=== PATIENT | female | born 1955 | race Caucasian/White ===

== ENCOUNTER 2021-09-06 02:16 | Emergency (ER) | payer BC, OTHER ==
[~2021-09-06] VITALS: Ht 152.4 cm; Wt 61.2 kg
--- NOTE | 2021-09-06 02:26 | NUR ---
PT AAOX4. BIBRA 89 C/O FEVER AND HEADACHE. +CHRONIC BACK PAIN. AT HOME, STATED TEMP WAS "103." PT STATED SHE TOOK 500MG TYLENOL PO. UPON TRAIGE, PT'S TEMP WAS 99. PLACED IN GOWN, ON CAMPAIGN WORKER, AND PULSE OX. LINE ESTABLISHED, BLOOD WORK COLLECTED, SENT TO LAB. ER AT BEDSIDE FOR EVAL.
[2021-09-06 02:55] LABS: BASOPHILS # (AUTO) 0.1 K/uL (0.0-0.2); BASOPHILS % (AUTO) 0.6 % (0.0-2.0); EOSINOPHILS % (AUTO) 0.7 % (0.0-6.0); HEMATOCRIT 38 % (33-45); HEMOGLOBIN 12.5 g/dL (11.5-14.8); MEAN CORPUSCULAR HGB CONC 33 g/dl (31.0-36.0); MEAN CORPUSCULAR VOLUME 88 fL (82-100); MONOCYTES % (AUTO) 6.7 % (2.0-12.0); NEUTROPHILS # (AUTO) 12.5 K/uL (1.8-8.9); PLATELET COUNT (AUTO) 238 K/uL (150-450); RED BLOOD CELL COUNT(AUTO) 4.37 MIL/uL (4.0-5.2); WHITE BLOOD COUNT (AUTO) 14.7 K/uL (4.3-11.0)
[2021-09-06] MEDS ORDERED: IV NS 0.9% 1,000 ML BAG IV ONE ×2 (03:00)
[2021-09-06 03:06] LABS: ALANINE AMINOTRANSFERASE 39 U/L (12-78); ALBUMIN 3.3 g/dL (3.4-5.0); ALKALINE PHOSPHATASE 73 U/L (46-116); ASPARTATE AMINOTRANSFERASE 24 U/L (15-37); BILIRUBIN,DIRECT 0.2 mg/dL (0.0-0.2); BILIRUBIN,TOTAL 1.1 mg/dL (0.2-1.0); CALCIUM, SERUM 8.5 mg/dL (8.5-10.1); CARBON DIOXIDE 26 mmol/L (21-32); CHLORIDE 103 mmol/L (98-107); CREATININE 0.8 mg/dL (0.6-1.3); GLUCOSE 132 mg/dL (74-106); POTASSIUM 3.5 mmol/L (3.5-5.1); SODIUM SERUM 139 mmol/L (136-145); TOTAL PROTEIN, SERUM 6.9 g/dL (6.4-8.2); UREA NITROGEN, BLOOD 12 mg/dL (7-18)
[2021-09-06 03:14] LABS: BILIRUBIN,URINE Negative (NEGATIVE); COLOR,URINE YELLOW (YELLOW); LEUKOCYTE ESTERASE ,URINE Negative (NEGATIVE); NITRITE, URINE Negative (NEGATIVE); PROTEIN,URINE Negative (NEGATIVE); UGLUCOSE Negative (NEGATIVE); UROBILINOGEN,URINE 0.2 EU/dL (0.2)
--- NOTE | 2021-09-06 03:20 | NUR ---
FLY MAKER AT BEDSIDE
--- NOTE | 2021-09-06 03:25 | NUR ---
PT TAKEN TO CT VIA JUSTIN
--- NOTE | 2021-09-06 03:30 | NUR ---
PT RETURNED TO ER ROOM 7
[2021-09-06 03:32] LABS: BACTERIA,URINE None seen /HPF (None Seen); RBC,URINE 0-2 /HPF (0-2); SQUAMOUS EPITHELIAL CELL,UR Few /HPF (None Seen); WBC,URINE 0-2 /HPF (0-3)
[2021-09-06] MEDS ORDERED: LEVOFLOXACIN (250MG) 250 MG TABLET ONE (04:24)
[2021-09-06] MEDS ORDERED: CYCLOBENZAPRINE 10 MG TABLET ONE (04:24)
[2021-09-06] MEDS ORDERED: LEVO500T90 PO (04:26)
[2021-09-06] MEDS ORDERED: CYCLOBENZAPRINE 10 MG TABLET PO ONE (04:30)
[2021-09-06] MEDS ORDERED: LEVOFLOXACIN (250MG) 250 MG TABLET PO SCH (04:30)
--- NOTE | 2021-09-06 04:51 | NUR ---
Patient discharged to home in stable condition. RX Written and verbal after care instructions given. Patient verbalizes understanding of instruction. DC via w/c. DC IV; NO ACTIVE BLEEDING NOTED. DC STEPHENS BAG.
[2021-09-06 04:52] VITALS: BP 134/79
== END 2021-09-06 04:52 | disposition home or self-care (01) ==
LOC: ER 02:18
DX: J32.9 Chronic sinusitis, unspecified (principal); I10 Essential (primary) hypertension; M54.9 Dorsalgia, unspecified; G89.29 Other chronic pain; R00.0 Tachycardia, unspecified; Z88.0 Allergy status to penicillin; Z88.5 Allergy status to narcotic agent; Z86.73 Personal history of transient ischemic attack (TIA), and cerebral infarction without residual deficits
CPT/HCPCS: 36415; 51702; 70450; 71045; 80048; 80076; 81001; 83605; 84145; 84484; 85025; 85730; 87040 ×2; 87081; 87086; 93005; 96360; 99285; J7030